=== PATIENT | female | born 1985 | race Caucasian/White ===

== ENCOUNTER 2020-03-10 08:25 | Inpatient (IN) | payer OTHER ==
[2020-03-10] MEDS ORDERED: OXYTOCIN 30 UNITS in 0.9% NS 30 UNIT/500 ML INFUS.BAG IVPB SCH (09:00)
[2020-03-10] MEDS ORDERED: ELECTROLYTE-148 SOLN 1,000 ML IV SCH (09:00)
--- NOTE | 2020-03-10 09:05 | HP ---
Past Medical History - Admission Chief Complaint: 34 yo here for induction of labor History Source: Patient Limitations to Obtaining History: No Limitations - Past Medical History ...: 4 ...Para: 3 ... Weeks Gestation by Dates: 40 ...EDC by Dates: 03/10/20 - Past Surgical History Past Surgical History: Yes: Tubal Ligation Hx Myomectomy: No Hx Transabdominal Cerclage: No Additional Surgical History: abdominoplasty - Smoking History Have you smoked in the past 12 months: No - Alcohol/Substance Use Hx Alcohol Use: No History of Substance Use: reports: None - Social History Usual Living Arrangement: Yes: With Spouse Do you think of yourself as: Straight/Heterosexual History of Recent Travel: No Home Medications - Allergies Allergies/Adverse Reactions: Allergies Allergy/AdvReac Type Severity Reaction Status Date / Time No Known Allergies Allergy Verified 01/17/20 22:47 - Home Medications Home Medications: Ambulatory Orders Vitamins (Sjr) - 1 tab PO DAILY 01/17/20 Review of Systems - Review of Systems Constitutional: reports: No Symptoms Eyes: reports: No Symptoms HENT: reports: No Symptoms Neck: reports: No Symptoms Cardiovascular: reports: No Symptoms Respiratory: reports: No Symptoms Gastrointestinal: reports: No Symptoms Genitourinary: reports: No Symptoms Breasts: reports: No Symptoms Reported Musculoskeletal: reports: No Symptoms Integumentary: reports: No Symptoms Neurological: reports: No Symptoms Endocrine: reports: No Symptoms Hematology/Lymphatic: reports: No Symptoms Psychiatric: reports: No Symptoms Physical Exam - Maternity Constitutional: Yes: Well Nourished, No Distress, Calm Eyes: Yes: WNL, Conjunctiva Clear, EOM Intact HENT: Yes: WNL, Atraumatic, Normocephalic Neck: Yes: WNL, Supple, Trachea Midline Cardiovascular: Yes: WNL, Regular Rate and Rhythm Breast(s): Yes: WNL - Abdominal Exam/OB Number of Fetuses: Single Presentation: Vertex Contractions: No Intensity: Unaware Monitor Mode: External Category: I Accelerations: Uniform Decelerations: None - Vaginal Exam/OB Vaginal Bleeding: No Speculum Exam: No Amniotic Membrane Status: Intact Presentation: Vertex/Position Station: -2 - Physical Exam Musculoskeletal: Yes: WNL Extremities: Yes: WNL Assessment/Plan IUP at 40 weeks IVF baby plan induction of labor.
[2020-03-10] MEDS ORDERED: OXYTOCIN 30 UNITS in 0.9% NS 30 UNIT/500 ML INFUS.BAG IVPB ONE (09:58)
[2020-03-10 10:18] VITALS: BMI 29.7
[2020-03-10 10:38] LABS: BASO % 0.3 % (0-2.0); EOS % 1.7 % (0-4.5); HEMATOCRIT 33.3 % (32.4-45.2); LYMPH % 36.5 % (8-40); MCH 25.5 pg (25.7-33.7); MCHC 32.9 g/dl (32.0-36.0); MEAN CELL VOLUME 77.4 fl (80-96); MONO % 7.7 % (3.8-10.2); NEUT % 53.8 % (42.8-82.8); PLATELET COUNT 146 K/MM3 (134-434); RDW 15.2 % (11.6-15.6); WHITE BLOOD COUNT 6.7 K/mm3 (4.0-10.0)
[2020-03-10 10:49] LABS: INR 0.95 (0.83-1.09); PROTHROMBIN TIME (PATIENT) 11.2 SEC (9.7-13.0)
[2020-03-10 10:52] LABS: ACTIVATED PTT 26.3 SECONDS (25.2-36.5)
[2020-03-10 11:05] LABS: BLOOD UREA NITROGEN 6.7 mg/dL (7-18); CALCIUM 8.7 mg/dL (8.5-10.1); CREATININE 0.5 mg/dL (0.55-1.3); POTASSIUM 3.8 mmol/L (3.5-5.1)
[2020-03-10] MEDS ORDERED: PROMETHAZINE HCL 25 MG/1 ML VIAL ONE (14:13)
[2020-03-10] MEDS ORDERED: BUTORPHANOL TARTRATE 2 MG/ML VIAL ONE (14:13)
[2020-03-10] MEDS ORDERED: BUTORPHANOL TARTRATE 1 MG/ML VIAL IVPB ONE (14:20)
[2020-03-10] MEDS ORDERED: PROMETHAZINE HCL 25 MG/1 ML VIAL IVPB ONE (14:20)
--- NOTE | 2020-03-10 14:24 | PN ---
Progress Note (short form) - Note Progress Note: cervix 2 cm 60% effaced vertex -2 tracing recactive with good variability accelerations no deceleratioons category I at 140 BPM . plan stadol oxytocin augmentation
[2020-03-10] MEDS ORDERED: OXYTOCIN 20 UNITS in 0.9% NS 20 UNIT/1,000 ML INFUS.BAG IV ONE (15:55)
[2020-03-10] MEDS ORDERED: LIDOCAINE HCL 1% PRESERVATIVE FREE - 30ML VIAL ONE (15:55)
[2020-03-10] MEDS ORDERED: METHYLERGONOVINE MALEATE 0.2 MG/1 ML AMP IM PRN (16:17)
[2020-03-10] MEDS ORDERED: BISACODYL 10 MG SUPP.RECT RC PRN (16:17)
--- NOTE | 2020-03-10 16:19 | PN ---
Delivery - Delivery Vaginal Delivery: No Problems Type of Anesthesia: None Episiotomy/Laceration: None EBL (cc): 200 Delivery, Single - Feeding Plan Initial Plan: Exclusive throughout hospitalization
[2020-03-10] MEDS ORDERED: OXYTOCIN 20 UNITS in 0.9% NS 20 UNIT/1,000 ML INFUS.BAG IV SCH (16:30)
[2020-03-10] MEDS ORDERED: ACETAMINOPHEN 325 MG TABLET (FP) ONE (18:11)
[2020-03-10] MEDS ORDERED: IBUPROFEN 600 MG TABLET (FP) PO ONE (18:11)
[2020-03-10] MEDS: IBUPROFEN 600 MG TABLET (FP) PO PRN (18:15)
[2020-03-10] MEDS: ACETAMINOPHEN 325 MG TABLET (FP) PO PRN (18:15)
[2020-03-11 08:35] LABS: BASO % 0.3 % (0-2.0); EOS % 1.2 % (0-4.5); HEMATOCRIT 29.9 % (32.4-45.2); HEMOGLOBIN 9.9 GM/dL (10.7-15.3); MCH 25.6 pg (25.7-33.7); MEAN CELL VOLUME 77.5 fl (80-96); MEAN PLT VOLUME 9.3 fl (7.5-11.1); MONO % 9.4 % (3.8-10.2); NEUT % 56.1 % (42.8-82.8); PLATELET COUNT 140 K/MM3 (134-434); RBC 3.86 M/mm3 (3.60-5.2); RDW 15.2 % (11.6-15.6); WHITE BLOOD COUNT 9.4 K/mm3 (4.0-10.0)
[2020-03-11] MEDS ORDERED: BSS (NA/CA/MG/K) BALANCED SALT SOLUTION OPHTH SOLN 15 ML BOTTLE OU PRN (08:56)
--- NOTE | 2020-03-11 09:00 | PN ---
Progress Note (short form) - Note Progress Note: pt states doing well overall. no abd pain. min bleeding. ambulating and tolerating diet. c/o history of dry eyes and left eye (blind) is bothering her this morning. usually uses eye drops. vss - af abd: soft, nt, nd. fundus firm ve: intact. min lochia a/p ppd 1 pt stable sterile saline drops to eyes ordered. check cbc this am pt. prefers to go home tmrw am
[2020-03-11] MEDS: ACETAMINOPHEN 325 MG TABLET (FP) PO PRN ×2 (09:31→23:28)
[2020-03-11] MEDS: IBUPROFEN 600 MG TABLET (FP) PO PRN ×2 (09:32→23:29)
[2020-03-11] MEDS ORDERED: SENNOSIDES/DOCUSATE COMBO (SENNA PLUS) TABLET (UD) PO PRN (22:00)
--- NOTE | 2020-03-12 10:00 | PN ---
Progress Note (short form) - Note Progress Note: Patient without complaaints Tolerating diet, asymptomatic Vs wnl Hb- 9.9 Abdomen soft, uterus well contracted normal lochial flow no calf tenderness A/P- PPD#2 s/p vaginal delivery Discharge home with instructions. Home on ibuprofen and colace, continue prental vitamins, follow up with primary OB in 1 week and then 6 weeks call for appointment
--- NOTE | 2020-03-12 10:06 | DS ---
Physical Exam-[employer] Vital Signs: Vital Signs Temperature 98 F 03/11/20 22:00 Pulse Rate 80 03/11/20 22:00 Respiratory Rate 18 03/11/20 22:00 Blood Pressure 112/70 03/11/20 22:00 O2 Sat by Pulse Oximetry (%) 99 03/11/20 14:00 Constitutional: Yes: Well Nourished Cardiovascular: Yes: WNL Respiratory: Yes: WNL Gastrointestinal: Yes: WNL External Genitalia: Yes: Normal Uterus: Yes: Normal ....Post : Yes: Uterus firm Breast(s): Yes: WNL Musculoskeletal: Yes: WNL Extremities: Yes: WNL Labs: CBC, BMP 03/11/20 07:43 03/10/20 09:50 Delivery - Delivery Vaginal Delivery: No Problems Type of Anesthesia: None Episiotomy/Laceration: None EBL (cc): 200 Delivery, Single - Stages of Labor Date 1st Stage Initiatied: 03/10/20 Time 1st Stage Initiated: 13:00 Date 2nd Stage Initiated: 03/10/20 Time 2nd Stage Initiated: 15:50 Date of Delivery: 03/10/20 Time of Delivery: 16:07 Time Placenta Delivered: 16:15 - Condition of Infant [employer] Present: No Infant Gender: Male Weight: 3.147 kg Position: Left, OA Total Hours ROM (Hrs/Mins): 5Hrs/30Mins - 1 Minute Total Score: 6 5 Minutes Total Score: 8 - Feeding Plan Initial Plan: Exclusive throughout hospitalization Remarks - Remarks Remarks: Patient s/p vaginal delivery Tolerating diet normal lochial flow no calf tenderness discharge home with instructions, follow up with OB. Discharge Summary Problems reviewed: Yes Reason For Visit: INDUCTION OF LABOR Procedures: Principal: Hospital Course: Patient s/p vaginal delivery, no complaints Tolerating diet discharge home Plan of Treatment: Home on Iborofen and colace Follow up [facility] with primary ob in 1week, call for appointment Return to ER if fever >100.4, severe vaginal bleeding, severe abdominal pain or any unusual symptoms. No sex, nothing in vagina, no tampons, no tub baths Condition: Stable - Instructions Diet, Activity, Other Instructions: regular diet Home on Iborofen and colace Follow up [facility] with primary ob in 1week, call for appointment Return to ER if fever >100.4, severe vaginal bleeding, severe abdominal pain or any unusual symptoms. No sex, nothing in vagina, no tampons, no tub baths Disposition: HOME - Home Medications Comprehensive Discharge Medication List: Ambulatory Orders Vitamins (Sjr) - 1 tab PO DAILY 01/17/20 Prescription Drug Monitoring Program (I-STOP) results: I-STOP not reviewed
[2020-03-12 10:12] VITALS: BP 125/79; PULSE 71; TEMP 98
[2020-03-13] MEDS ORDERED: PRENATAL VITAMINS W/ FOLIC ACID TABLET (FP) PO SCH (10:00)
== END 2020-03-12 13:45 | disposition home or self-care (01) | DRG 560 ==
LOC: JLDR 08:25 → J3W 19:45
PROVIDERS: ADMIT Specialist; ATTEND Specialist
PROC: 10E0XZZ Delivery of Products of Conception, External Approach (ICD-10-PCS; principal; 2020-03-10)
DX: O48.0 Post-term pregnancy (principal); Z3A.40 40 weeks gestation of pregnancy; Z37.0 Single live birth; O69.81X0 Labor and delivery complicated by cord around neck, without compression, not applicable or unspecified; H04.123 Dry eye syndrome of bilateral lacrimal glands; H54.62 Unqualified visual loss, left eye, normal vision right eye
CPT/HCPCS: 36415; 59409; 80048; 85025; 85610; 85730; 86780; 86850; 86900; 86901; 87389

== ENCOUNTER 2020-09-14 19:44 | Emergency (ER) | payer OTHER ==
[2020-09-14 19:55] VITALS: BP 125/82; PULSE 79; TEMP 98.3; BMI 28.1
[2020-09-14] MEDS ORDERED: ACETAMINOPHEN 325 MG TABLET (FP) PO ONE (21:10)
[2020-09-14 21:42] LABS: BASO % 0.4 % (0-2.0); EOS % 1.3 % (0-4.5); HEMATOCRIT 37.9 % (32.4-45.2); HEMOGLOBIN 12.2 GM/dL (10.7-15.3); LYMPH % 32.4 % (8-40); MCH 25.3 pg (25.7-33.7); MCHC 32.2 g/dl (32.0-36.0); MEAN CELL VOLUME 78.6 fl (80-96); MEAN PLT VOLUME 8.8 fl (7.5-11.1); MONO % 7.1 % (3.8-10.2); NEUT % 58.8 % (42.8-82.8); PLATELET COUNT 244 K/MM3 (134-434); RBC 4.82 M/mm3 (3.60-5.2); RDW 14.4 % (11.6-15.6); WHITE BLOOD COUNT 8.5 K/mm3 (4.0-10.0)
[2020-09-14 21:57] LABS: HCG,QUALITATIVE URINE Negative
[2020-09-14 22:04] LABS: EPI CELLS >36 /uL (0-25.1); HYALINE CASTS 9 /uL (0-3.1); PH,URINE 5.5 (5.0-8.0); URINE APPEARANCE TURBID; URINE BACTERIA >9,000 /uL (0-1359); URINE BILIRUBIN NEGATIVE (NEGATIVE); URINE COLOR YELLOW; URINE GLUCOSE (UA) NEGATIVE (NEGATIVE); URINE KETONE NEGATIVE (NEGATIVE); URINE LEUK ESTERASE 3+ (NEGATIVE); URINE NITRITE POSITIVE (NEGATIVE); URINE PROTEIN 2+ (NEGATIVE); URINE RBC 9834 /uL (0-23.9); URINE WBC 7633 /uL (0-25.8)
[2020-09-14 22:06] LABS: POTASSIUM 4.8 mmol/L (3.5-5.1)
[2020-09-14 22:07] LABS: CALCIUM 9.7 mg/dL (8.5-10.1)
[2020-09-14 22:08] LABS: ALBUMIN 3.9 g/dl (3.4-5.0); BLOOD UREA NITROGEN 8.5 mg/dL (7-18)
[2020-09-14] MEDS ORDERED: CEFTRIAXONE 1,000 MG in DEXTROSE 5%-WATER - 50 ML IVPB ONE (22:10)
[2020-09-14 22:11] LABS: CREATININE 0.7 mg/dL (0.55-1.3)
[2020-09-14 22:13] LABS: BILIRUBIN,TOTAL 0.6 mg/dL (0.2-1); TOT PROT 7.6 g/dl (6.4-8.2)
[2020-09-14] MEDS ORDERED: ACETAMINOPHEN 325 MG TABLET (FP) ONE ×2 (22:17→22:36)
[2020-09-14] MEDS ORDERED: KETOROLAC TROMETHAMINE 15 MG/ML VIAL IVPUSH ONE (22:23)
[2020-09-14] MEDS ORDERED: KETOROLAC TROMETHAMINE 15 MG/ML VIAL ONE (22:36)
[2020-09-14] MEDS ORDERED: CEFTRIAXONE 1 GM/50 ML BAG ONE (22:36)
== END 2020-09-14 23:00 | disposition home or self-care (01) ==
LOC: JER 19:44
PROC: 3E03329 Introduction of Other Anti-infective into Peripheral Vein, Percutaneous Approach (ICD-10-PCS; principal; 2020-09-14)
PROC: 3E0333Z Introduction of Anti-inflammatory into Peripheral Vein, Percutaneous Approach (ICD-10-PCS; 2020-09-14)
DX: N39.0 Urinary tract infection, site not specified (principal)
CPT/HCPCS: 36415; 80053; 81003; 84703; 85025; 87086; 87186; 99284-25